=== PATIENT | female | born 1990 | race Hispanic/Latino ===

== ENCOUNTER 2019-07-10 01:06 | Emergency (ER) | payer OTHER, SELFPAY ==
[2019-07-10 01:17] VITALS: BP 117/88; PULSE 92; RESP 18; TEMP 37.1; O2SAT 99
--- NOTE | 2019-07-10 01:22 | ED.PREGNANCY ---
HPI - General Chief complaint: OB/Uterine Contractions Stated complaint: 16 weeks - vaginal bleeding Time Seen by Provider: 07/10/19 01:16 Source: patient and RN notes reviewed Mode of arrival: ambulatory Limitations: no limitations History of Present Illness HPI Narrative: The pt does not speak German so the Stratus was used to translate. A 29 y/o female, who is 16 weeks gravid, presents to the ED with severe, intermittent, contraction like ABD pain beginning at 9 PM tonight. She states that she went to the restroom at 5 PM and when she wiped she had some mucus and a small amount of blood on the toilet paper. She reports that she then began to have severe, intermittent, cramping ABD pains that felt like contractions. She notes that her ABD will get hard whenever she begins to have the pain. She also notes that she [facility] for her OBGYN care. She denies any N/V/D, fevers, chills, cough, or SOB. Complaint: abdominal pain and contractions Onset (ago): hour(s) (4) Pain Consistency: intermittent Location: abdomen Severity: severe Quality: Cramping Associated symptoms: vaginal bleeding (small amount when she wiped) and vaginal discharge (mucus when she wiped) Patient : Yes Number of Weeks : 16 Related Data Home Medications Medication Instructions Recorded Confirmed No Home Medications 05/01/19 05/01/19 Allergies Allergy/AdvReac Type Severity Reaction Status Date / Time No Known Allergies Allergy Verified 07/10/19 01:26 Review of Systems Review of Systems: All systems reviewed & are unremarkable except as noted in HPI and below Constitutional: Constitutional: Denies chills and Denies fever(s) Respiratory: Respiratory: Denies cough and Denies dyspnea Gastrointestinal: Gastrointestinal: Reports abdominal pain, Reports GI cramping (contraction like), Denies diarrhea, Denies nausea and Denies vomiting Genitourinary: Genitourinary: Reports abnormal vaginal bleeding (small amount when she wiped) and Reports vaginal discharge (mucus when she wiped) PMFSH Past Medical History Medical History (Updated 07/10/19 @ 01:37 by Tavo Meek MD) No pertinent past medical history Surgical History Surgical History (Updated 05/01/19 @ 07:33 by Emma Winslow MD) No significant past surgical history Social History Social History (Updated 05/01/19 @ 07:33 by Emma Winslow MD) Smoking status: Never smoker Exam Const: General: healthy appearing and no acute distress Nutritional Appearance: well nourished HENMT: Mouth: Yes lip normal and Yes moist mucous membranes Eyes: Conjunctivae: conjunctivae normal Pupils: Equal, round and reactive pupils present Resp: Effort & Inspection: normal respiratory effort Auscultation: clear to auscultation bilaterally Cardio: Rate: regular rate Rhythm: regular rhythm Heart sounds: no murmurs GI: GI Palp: Yes abdominal tenderness (suprapubic) and Yes Soft to palpation Auscultation: normal bowel sounds Back/Spine/Pelvis: Other: Full ROM. Skin: General skin exam: normal color, dry skin and other (warm) Neuro: General: patient oriented x3 (alert) Speech: normal speech Extrem: General: full ROM Psych: Mental Status: mental status grossly normal Affect: normal affect Course Vital Signs Vital signs: Vital Signs Temperature 37.1 C 07/10/19 01:17 Pulse Rate 92 07/10/19 01:17 Respiratory Rate 18 07/10/19 01:17 Blood Pressure 117/88 07/10/19 01:17 Pulse Oximetry 99 07/10/19 01:17 Temperature 37.1 C 07/10/19 01:17 Pulse Rate 92 07/10/19 01:17 Respiratory Rate 18 07/10/19 01:17 Blood Pressure 117/88 07/10/19 01:17 Pulse Oximetry 99 07/10/19 01:17 Procedures Other Procedure Procedure 1: Other Procedure: Bedside ultrasound shows fetus grossly normal for dates. Reassuring movemeent FHR 157 MDM - OB/Uterine Contractio
== END 2019-07-10 01:46 | disposition home or self-care (01) ==
PROVIDERS: Emergency Provider Emergency Medicine; PCP Registered Nurse
DX: O20.0 Threatened abortion (principal); Z3A.16 16 weeks gestation of pregnancy
CPT/HCPCS: 99282

== ENCOUNTER 2019-07-22 07:48 | Emergency (ER) | payer OTHER, SELFPAY ==
--- NOTE | ~2019-07-22 | XR_ITS ---
EXAMINATION: XR chest 1V portable EXAM DATE: 07/22/2019 10:20 INDICATION: Cough and fever. TECHNIQUE: Portable AP frontal chest x-ray was obtained. There is no prior study for comparison. FINDINGS: There is some ill-defined left lower lobe airspace disease suspected, could be developing f rom acute infectious process, clinical correlation. The lungs are otherwise clear. There are no pleu ral effusions. The cardiomediastinal silhouette is within normal limits. There is no pneumothorax s uspected. The bones and soft tissues are unremarkable. IMPRESSION: Probable developing left lower lobe ill-defined acute airspace disease, clinical correlat ion. Reviewed, dictated and finalized at location B. IMPRESSION: Probable developing left lower lobe ill-defined acute airspace dise ase, clinical correlation.
[2019-07-22 08:00] VITALS: BP 127/79; PULSE 104; RESP 16; TEMP 37.3; O2SAT 100
[2019-07-22 08:45] VITALS: BP 105/62; PULSE 88; RESP 18; O2SAT 100
--- NOTE | 2019-07-22 08:52 | ED.GENADULT ---
HPI - General Adult General Chief complaint: Upper Respiratory Infection Stated complaint: cough, fever Time Seen by Provider: 07/22/19 07:55 Source: patient Mode of arrival: ambulatory Limitations: no limitations History of Present Illness HPI narrative: Patient is a 29-year-old female who presents for evaluation of fever and cough. Patient reports that she has had a one-week history of intermittent fever to 102 Fahrenheit, as well as cough. She denies any shortness of breath. She reports congestion and sore throat. No belly pain or pain with urination. No contraction-like pain, loss of fluids or vaginal bleeding. Patient is currently a G5, P4 currently 20 weeks , following at the [facility]. Patient has not had any complications with this current . Her has been sick with similar symptoms. Her other children are well. No recent travel. Related Data Home Medications Medication Instructions Recorded Confirmed metoclopramide HCl 07/22/19 vit no.[id number] tablet 07/22/19 [Classic ] Allergies Allergy/AdvReac Type Severity Reaction Status Date / Time No Known Allergies Allergy Verified 07/22/19 08:10 Review of Systems Review of Systems: Narrative: CONSTITUTIONAL: Reports fever and chills EYES: Denies visual changes, redness, or discharge. ENT: Reports rhinorrhea, congestion and sore throat CARDIOVASCULAR: Denies chest pain, palpitations, or edema. RESPIRATORY: Reports cough, denies shortness of breath GASTROINTESTINAL: Denies abdominal pain, nausea, vomiting, or diarrhea. GENITOURINARY: Denies dysuria or hematuria. SKIN: Denies rash or itching. MUSCULOSKELETAL: Denies back pain, joint pain, or myalgia. NEUROLOGIC: Denies headache, numbness, or weakness. PSYCHIATRIC: Denies anxiety or depression. [facility] Past Medical History Medical History (Updated 07/22/19 @ 12:22 by Oliva Hollis MD) No pertinent past medical history and not yet delivered Surgical History Surgical History No significant past surgical history Social History Social History Smoking status: Never smoker Exam Narrative: Exam Narrative: GENERAL: Awake, alert, conversant HEAD: Normocephalic, atraumatic. EYES: PERRLA and EOMI. ENT: Nares clear, no rhinorrhea or epistaxis. Mucous membranes moist. Oropharynx with mild erythema, no exudate. No trismus. NECK: Supple. CHEST: Rhonchi present. No respiratory distress, breathing even and non labored HEART: Regular rate, sinus rhythm ABDOMEN:Non distended, non tender, fundus palpable at the umbilicus, no rigidity or guarding EXTREMITIES: Normal range of motion. No edema. SKIN: Warm, dry, no rash. NEURO:No focal deficits. Alert and oriented x3 Course Course Emergency Course: Patient presented for evaluation of cough, fever. At the time of initial assessment, ABCs are intact, vital signs are stable. Physical exam is notable for no erythema of the oropharynx. No labored respirations. IV access obtained and labs are drawn. Chest x-ray shows a developing pneumonia. Patient's spouse has findings that are very suspicious for Royal 19 pneumonia. Patient otherwise has no respiratory distress. Mild symptoms. heart tones in the 140s. No contraction-like pain, vaginal bleeding, loss of fluids. Patient influenza and was negative. No UTI. Advised patient the importance of staying at home, quarantine at home, limiting contact. Spoke with the patient's CLERICAL INVESTIGATOR, we will do azithromycin, fever management and a close phone follow-up for her. Patient was then discharged home with very strict return precautions. Vital Signs Vital signs: Vital Signs Temperature 37.3 C 07/22/19 08:00 Pulse Rate 104 H 07/22/19 08:00 Respiratory Rate 16 07/22/19 08:00 Blood Pressure 127/79 07/22/19 08:00 Pulse Oximetry
[2019-07-22 09:15] VITALS: BP 100/59; PULSE 74; RESP 20; O2SAT 99
[2019-07-22 09:52] LABS: Basophils Percent Auto 0.3 % (0.2-1.2); Eosinophils Percent Auto 0.6 % (0-4.4); Hematocrit 37.6 % (37.0-47.0); Hemoglobin 12.3 g/dL (12.0-15.0); Immature Granulocyte Absolute 0.02 K/mm3 (0.00-0.031); Immature Granulocyte Percent A 0.3 % (0-0.5); Lymphocytes Absolute Auto 1.36 K/mm3 (0.9-3.2); Lymphocytes Percent Auto 20.2 % (18.3-44.2); Mean Corpuscular HGB Conc 32.7 g/dl (32-36); Mean Corpuscular Hemoglobin 28.5 pg (26-34); Mean Corpuscular Volume 87.2 fl (80-100); Mean Platelet Volume 11.2 fl (7.4-10.4); Monocytes Absolute Auto 0.4 K/mm3 (0.1-0.6); Monocytes Percent Auto 5.4 % (2.6-8.5); Neutrophils Absolute Auto 4.9 K/mm3 (1.3-6.7); Neutrophils Percent Auto 73.2 % (45.5-73.1); Platelet Count Result 194 k/mm3 (150-375); Red Blood Count 4.31 M/mm3 (4.2-5.4); Red Cell Distribution Width 12.8 % (11.5-14.5); White Blood Count 6.7 K/mm3 (4.5-10.0)
[2019-07-22 10:00] VITALS: BP 103/58; PULSE 81; RESP 18; O2SAT 100
--- NOTE | 2019-07-22 10:05 | PC.NURSE ---
COVID 19 TEST OBTAINED AND SENT TO LAB. PT TOLERATED WELL.
[2019-07-22 10:32] LABS: CRP 3.4 mg/dL (<1.0)
[2019-07-22 10:43] LABS: Alanine Aminotransferase 14 U/L (4-35); Albumin Level 3.6 g/dL (3.5-5.1); Alkaline Phosphatase 57 U/L (38-126); Aspartate Amino Transferase 26 U/L (14-36); Bilirubin,Total 0.2 mg/dL (0.2-1.3); Blood Urea Nitrogen 3 mg/dL (7-17); Calcium 8.6 mg/dL (8.4-10.2); Carbon Dioxide 23 mmol/L (22-30); Chloride 106 mmol/L (98-107); Estimated CRCL calculation 161 ml/min; Estimated Glomerular Filt Rate > 60; Glucose 77 mg/dL (65-105); Potassium 3.7 mmol/L (3.4-5.0); Sodium 136 mmol/L (137-145)
[2019-07-22 11:01] LABS: Lactate Dehydrogenase 384 U/L (313-618)
[2019-07-22 11:39] LABS: Add Urine Microscopic? YES; Appearance Urine Clear (Clear); Bacteria Urine Trace /hpf; Bilirubin Urine Negative (Negative); Blood Urine Negative (Negative); Color Urine Straw (Yellow); Glucose Urine UA Negative (Negative); Ketones Urine 1+ mg/dL (Negative); Leukocyte Esterase Ur Negative LEU/UL (Negative); Mucus Urine Rare /lpf; Nitrate Urine Negative (Negative); Protein Urine Negative (Negative); RBC Urine 0-2 /hpf (0-2); Squamous Epithelial Cell Urine Many /hpf (Few); Urobilinogen Urine Negative mg/dL (<2.0); WBC Urine 0-3 /hpf
[2019-07-22 12:55] VITALS: BP 118/64; PULSE 88; RESP 16; O2SAT 98
== END 2019-07-22 13:26 | disposition home or self-care (01) ==
PROVIDERS: Emergency Provider Emergency Medicine; PCP Registered Nurse
DX: O98.512 Other viral diseases complicating pregnancy, second trimester (principal); U07.1 COVID-19; O99.512 Diseases of the respiratory system complicating pregnancy, second trimester; J12.89 Other viral pneumonia; Z3A.20 20 weeks gestation of pregnancy
CPT/HCPCS: 36415; 71045; 80053; 81001; 83615; 85025; 86140; 87081; 87804; 87880; 99283

== ENCOUNTER 2022-02-07 19:30 | Emergency (ER) | payer OTHER, SELFPAY ==
[2022-02-07 20:13] VITALS: BP 127/77; PULSE 113; RESP 16; TEMP 39.4; O2SAT 98
--- NOTE | 2022-02-07 20:23 | ED.URI ---
HPI - URI/Sore Throat General Chief Complaint: Fever Stated Complaint: fever Time Seen by Provider: 02/07/22 20:24 Source: patient and RN notes reviewed Mode of arrival: ambulatory Limitations: no limitations History of Present Illness HPI Narrative: 31-year-old female presents to the [facility] with complaints of fever, body aches, sore throat for 2 days. Has taken Tylenol this morning. No other treatment prior to arrival. MD elicited complaint: fever, sore throat and nasal congestion Onset (ago): day(s) (2) Related Data Allergies Allergy/AdvReac Type Severity Reaction Status Date / Time No Known Allergies Allergy Verified 07/22/19 08:10 Review of Systems Review of Systems: All systems reviewed & are unremarkable except as noted in HPI and below Constitutional: Constitutional: Reports no additional constitutional complaints, Denies chills and Denies fever(s) Eyes: Eyes: Reports no additional eye complaints ENT: Reports system reviewed and no additional complaints, except as documented Cardiovascular: Cardiovascular: Reports no additional cardiovascular complaints Respiratory: Respiratory: Reports no additional respiratory complaints Gastrointestinal: Gastrointestinal: Reports no additional gastrointestinal complaints Musculoskeletal: Musculoskeletal: Reports no additional musculoskeletal complaints Integumentary/Breasts: Skin/Breast: Reports system reviewed and no additional complaints, except as docu Neurologic: Reports system reviewed and no additional complaints, except as documented Psychiatric: Psychiatric: Reports no additional psychiatric complaints Allergic/Immunologic: Allergic/Immunologic: Reports no additional allergic/immunologic complaints PMFSH Past Medical History Medical History No pertinent past medical history and not yet delivered Surgical History Surgical History No significant past surgical history Social History Social History Smoking status: Never smoker Comments At the time of my signature, I reviewed and agree with the nursing past medical, surgical, social, and family history. There is no relevant family history pertinent to the patient complaint. Exam Const: General: no acute distress, alert, ill appearing acutely and well nourished Nutritional Appearance: well nourished Orientation/consciousness: patient oriented x3 Limitations: no limitations HENMT: Head: normal to inspection Ears: external ears normal, TM's normal bilaterally and EAC's normal Face/Nose/Sinus: Normal external nose present, Normal nares present and Normal nasal mucous membranes and turbinates present Face and sinus: normal facial exam and face symmetric Mouth: Yes Normal oral and palatal mucosa present, Yes lip normal, Yes tongue normal and Yes moist mucous membranes Throat: uvula midline, abnormal tonsil bilateral erythema and hypertrophy 2+, posterior oropharynx abnormal erythema; no exudates and no lacerations and postnasal drainage Eyes: General: appearance normal, both eyes and all related structures Conjunctivae: conjunctivae normal Pupils: Equal, round and reactive pupils present Neck: Neck: normal visual inspection, no lymphadenopathy and no meningeal signs Chest: Chest palpation & inspection: normal inspection of the chest Resp: Effort & Inspection: normal respiratory effort and no use of accessory muscles Auscultation: clear to auscultation bilaterally, no crackles, no rales, no rhonchi and no wheezes Cardio: Rate: regular rate Rhythm: regular rhythm Skin: General skin exam: normal color Rashes: no rashes Wounds: no wounds Neuro: General: patient oriented x3, moves all extremities, no meningeal signs and no focal motor deficits Cranial nerves: Yes Equal, round and reactive pupils present Speech: normal speech
== END 2022-02-07 20:43 | disposition home or self-care (01) ==
PROVIDERS: Emergency Provider Nurse Practitioner; PCP Physician Assistant
DX: J02.0 Streptococcal pharyngitis (principal)
CPT/HCPCS: 87804; 87880; 99213; G0463

== ENCOUNTER 2023-04-08 15:53 | Emergency (ER) | payer OTHER, SELFPAY ==
[2023-04-08 16:10] VITALS: BP 125/74; PULSE 92; RESP 14; TEMP 37; O2SAT 100
--- NOTE | 2023-04-08 17:00 | ED.URI ---
HPI - URI/Sore Throat General Chief Complaint: Upper Respiratory Infection Stated Complaint: fever,sore throat Time Seen by Provider: 04/08/23 17:00 Source: patient Mode of arrival: ambulatory Limitations: no limitations History of Present Illness HPI Narrative: 33-year-old female presents with complaint of sore throat, headache, fatigue, fever starting yesterday. Patient taking Tylenol to treat symptoms. Denies nausea vomiting diarrhea. All systems reviewed and negative except as noted above. Related Data Allergies Allergy/AdvReac Type Severity Reaction Status Date / Time No Known Allergies Allergy Verified 04/08/23 16:11 Review of Systems Review of Systems: CONSTITUTIONAL: reports fever, chills, or sweats. EYES: Denies visual changes, redness, or discharge. ENT: Denies rhinorrhea, congestion . Reports sore throat. Denies otalgia. CARDIOVASCULAR: Denies chest pain, palpitations, or edema. RESPIRATORY: Denies cough or dyspnea. GASTROINTESTINAL: Denies abdominal pain, nausea, vomiting, or diarrhea. GENITOURINARY: Denies dysuria or hematuria. SKIN: Denies rash or itching. MUSCULOSKELETAL: Denies back pain, joint pain, or myalgia. NEUROLOGIC: reports headache. Denies numbness, or weakness. PSYCHIATRIC: Denies anxiety or depression. All other systems reviewed are negative, except as documented in HPI. PMFSH Past Medical History Medical History No pertinent past medical history and not yet delivered Surgical History Surgical History No significant past surgical history Social History Social History Smoking status: Never smoker Comments At time of signature, agree with nursing past medical, surgical, social and family history. There is no relevant family history pertinent to the presenting complaint. Exam Narrative: GENERAL: This is a well-nourished, well-developed patient, patient ill-appearing but in no acute distress. HEAD: normocephalic, atraumatic. EYES: PERRL. Sclera clear/white. Vision is grossly intact. EARS: External ears normal, auditory canals clear and without drainage, TMs normal without perforation. Hearing grossly intact. NOSE: External nose normal with no obvious nasal discharge, nares without redness, no rhinorrhea. THROAT: Mucous membranes moist, Posterior pharynx erythematous with swelling. No exudates. NECK: Neck supple, tender with Anterior cervical lymphadenopathy. No masses or thyromegaly. CARDIOVASCULAR: Regular rate and rhythm without murmurs, gallops, or rubs. RESPIRATORY: Clear to auscultation. Breath sounds equal bilaterally. No wheezes, rales, or rhonchi. SKIN: warm, Dry, intact with no suspicious lesions or rash, good texture and turgor. NEURO: awake, alert, and oriented to person, place and time. There were no obvious focal neurologic abnormalities. EXTREMITIES: No joint tenderness, effusion, or edema noted. Course Course Level of Care: Express Care Visit Vital Signs Vital signs: reviewed MDM - URI/Sore Throat MDM Narrative Medical decision making narrative: Patient is aware of diagnosis, understands and agrees to treatment plan. Anticipatory guidance given. Patient agrees to follow-up as directed and is aware of reasons to seek care at the emergency department. Portions of this record may have been created with voice recognition software Differential Diagnosis Differential diagnosis: Likely pharyngitis Lab Data Labs: Strep Screen Positive Group A Strep *(Reference Range: Negative)* Discharge Plan Discharge Clinical Impression: Strep throat Patient Disposition: Home, Self-Care Condition: Stable Instructions: Strep Throat (ED) Additional Instructions: your strep test was positive today. Take
== END 2023-04-08 17:10 | disposition home or self-care (01) ==
PROVIDERS: Emergency Provider Nurse Practitioner Family; PCP Physician Assistant
DX: J02.0 Streptococcal pharyngitis (principal)
CPT/HCPCS: 87880; 99213; G0463

== ENCOUNTER 2023-05-28 08:53 | Outpatient (CLI) | payer OTHER, SELFPAY ==
--- NOTE | 2023-05-28 11:15 | NEURO_ITS ---
Impression: # Non-diabetic complains of nocturnal left hand paresthesia. # Left mild Carpal Tunnel Syndrome. # Normal needle/EMG exam. # Clinical correlation recommended. Nerve Conduction Studies Anti Sensory Summary Table Stim Site NR Peak (ms) P-T Amp (?V) Site1 Site2 Delta-P (ms) Dist (cm) Pineda (m/s) Left Median Anti Sensory (2-3nd Digit) Wrist 3.3 60.4 Wrist 2-3nd Digit 3.3 14.0 42 Wrist 3.3 70.5 Wrist 2-3nd Digit 3.3 14.0 42 Right Median Anti Sensory (2-3nd Digit) Wrist 2.8 57.5 Wrist 2-3nd Digit 2.8 14.0 50 Wrist 2.8 88.2 Wrist 2-3nd Digit 2.8 14.0 50 Left Radial Anti Sensory (Base 1st Digit) Wrist 1.8 36.0 Wrist Base 1st Digit 1.8 0.0 Right Radial Anti Sensory (Base 1st Digit) Wrist 2.1 14.7 Wrist Base 1st Digit 2.1 0.0 Left Ulnar Anti Sensory (5th Digit) Wrist 2.5 89.5 Wrist 5th Digit 2.5 14.0 56 Right Ulnar Anti Sensory (5th Digit) Wrist 2.1 43.0 Wrist 5th Digit 2.1 14.0 67 Motor Summary Table Stim Site NR Onset (ms) O-P Amp (mV) Site1 Site2 Delta-0 (ms) Dist (cm) Pineda (m/s) Left Median Motor (Abd Poll Brev) Wrist 4.5 2.3 Elbow Wrist 4.3 26.0 60 Elbow 8.8 3.2 Right Median Motor (Abd Poll Brev) Wrist 3.2 9.0 Elbow Wrist 4.2 25.0 60 Elbow 7.4 8.5 Left Ulnar Motor (Abd Dig Minimi) Wrist 2.5 8.7 A Elbow Wrist 4.8 28.0 58 A Elbow 7.3 7.3 Right Ulnar Motor (Abd Dig Minimi) Wrist 2.6 7.8 A Elbow Wrist 4.4 27.0 61 A Elbow 7.0 6.5 F Wave Studies NR F-Lat (ms) L-R F-Lat (ms) Left Median (Mrkrs) (Abd Poll Brev) 25.11 1.13 Right Median (Mrkrs) (Abd Poll Brev) 23.98 1.13 Left Ulnar (Mrkrs) (Abd Dig Min) 24.81 1.38 Right Ulnar (Mrkrs) (Abd Dig Min) 23.44 1.38 EMG Side Muscle Nerve Root Ins Act Fibs Amp Dur Recrt Comment Right 1stDorInt Ulnar C8-T1 Nml Nml Nml Nml Nml Right Ext Indicis Radial (Post Int) C7-8 Nml Nml Nml Nml Nml Right Ext Digitorum Radial (Post Int) C7-8 Nml Nml Nml Nml Nml Right BrachioRad Radial C5-6 Nml Nml Nml Nml Nml Right PronatorTeres Median C6-7 Nml Nml Nml Nml Nml Right Abd Poll Brev Median C8-T1 Nml Nml Nml Nml Nml Left 1stDorInt Ulnar C8-T1 Nml Nml Nml Nml Nml Left Ext Indicis Radial (Post Int) C7-8 Nml Nml Nml Nml Nml Left Ext Digitorum Radial (Post Int) C7-8 Nml Nml Nml Nml Nml Left BrachioRad Radial C5-6 Nml Nml Nml Nml Nml Left PronatorTeres Median C6-7 Nml Nml Nml Nml Nml Left Abd Poll Brev Median C8-T1 Nml Nml Nml Nml Nml Right ABD Dig Min Ulnar C8-T1 Nml Nml Nml Nml Nml Right Biceps Musculocut C5-6 Nml Nml Nml Nml Nml Right Triceps Radial C6-7-8 Nml Nml Nml Nml Nml Right Deltoid Axillary C5-6 Nml Nml Nml Nml Nml Left ABD Dig Min Ulnar C8-T1 Nml Nml Nml Nml Nml Left Biceps Musculocut C5-6 Nml Nml Nml Nml Nml Left Triceps Radial C6-7-8 Nml Nml Nml Nml Nml Left Deltoid Axillary C5-6 Nml Nml Nml Nml Nml MTDD
== END 2023-05-28 08:54 | disposition home or self-care (01) ==
LOC: ANHNEURO 08:54
PROVIDERS: PCP Physician Assistant; Visit Provider Physician Assistant
DX: G56.02 Carpal tunnel syndrome, left upper limb (principal)
CPT/HCPCS: 95886; 95911

== ENCOUNTER 2023-08-03 08:32 | Emergency (ER) | payer OTHER, SELFPAY ==
--- NOTE | ~2023-08-03 | CT_ITS ---
EXAMINATION: CT soft tissue neck w con DATE: 08/03/2023 10:56 INDICATION: Postop pain. Tonsillectomy. TECHNIQUE: Computed tomography (CT) of the neck was performed with 75 mL Omnipaque-350 intravenous co ntrast. The dose-length product was 404.82 mGy-cm. Automated exposure control and iterative reconstru ction technique were employed. COMPARISON: None FINDINGS: No intracranial abnormality. No significant abnormality of the mucosal or parapharyngeal sp aces. Lung apices are unremarkable. No significant narrowing of the naso or oropharynx. No evidence f or abscess. No significant lymphadenopathy. No significant vascular abnormality. Thyroid gland is unr emarkable. Mucosal and parapharyngeal spaces are symmetric. IMPRESSION: 1. No significant abnormality of the neck soft tissues. Reviewed, dictated and finalized at location A.
[2023-08-03 08:37] VITALS: BP 123/83; PULSE 97; RESP 18; TEMP 37; O2SAT 100
[2023-08-03 10:05] LABS: Basophils Percent Auto 0.4 % (0.2-1.2); Eosinophils Absolute Auto 0.3 K/mm3 (0-0.3); Eosinophils Percent Auto 3.2 % (0-4.4); Hematocrit 46.9 % (37.0-47.0); Hemoglobin 15.2 g/dL (12.0-15.0); Immature Granulocyte Absolute 0.04 K/mm3 (0.00-0.031); Immature Granulocyte Percent A 0.4 % (0-0.5); Lymphocytes Absolute Auto 2.05 K/mm3 (0.9-3.2); Lymphocytes Percent Auto 19.2 % (18.3-44.2); Mean Corpuscular HGB Conc 32.4 g/dl (32-36); Mean Corpuscular Volume 89.3 fl (80-100); Mean Platelet Volume 10.5 fl (7.4-10.4); Monocytes Absolute Auto 0.4 K/mm3 (0.1-0.6); Monocytes Percent Auto 3.8 % (2.6-8.5); Neutrophils Absolute Auto 7.8 K/mm3 (1.3-6.7); Platelet Count Result 307 k/mm3 (150-375); Red Blood Count 5.25 M/mm3 (4.2-5.4); Red Cell Distribution Width 12.7 % (11.5-14.5); White Blood Count 10.7 K/mm3 (4.5-10.0)
[2023-08-03] MEDS: dexAMETHasone SOD PHOS INJ 10 MG/ML 1 ML VIAL IV PUSH (10:14)
[2023-08-03] MEDS: ONDANSETRON INJ 4 MG/2 ML VIAL IV PUSH (10:14)
[2023-08-03 10:15] LABS: Alanine Aminotransferase 26 U/L (6-35); Albumin Level 4.8 g/dL (3.5-5.1); Alkaline Phosphatase 80 U/L (38-126); Anion Gap 9 mmol/L (4-12); Aspartate Amino Transferase 28 U/L (14-36); Bilirubin,Total 0.7 mg/dL (0.2-1.3); Blood Urea Nitrogen 7 mg/dL (7-17); Calcium 9.8 mg/dL (8.4-10.2); Carbon Dioxide 27 mmol/L (22-30); Chloride 104 mmol/L (98-107); Estimated Glomerular Filt Rate > 60; Glucose 98 mg/dL (65-110); Sodium 140 mmol/L (137-145)
[2023-08-03] MEDS: FAMOTIDINE 20 MG/2 ML VIAL IV PUSH (10:15)
[2023-08-03] MEDS: KETOROLAC 30 MG/ML VIAL (*BKC) IV PUSH (10:15)
[2023-08-03] MEDS: SODIUM CHLORIDE 0.9% IV 1,000 ML 999 ML IV CONT (10:15)
--- NOTE | 2023-08-03 10:37 | ED.GENADULT ---
HPI - General Adult General Chief complaint: Upper Respiratory Infection Stated complaint: fever Time Seen by Provider: 08/03/23 08:57 History of Present Illness HPI narrative: Opal Perry is a 33 y/o Luxembourgish speaking female, through the district home economics agent pt states that she had her tonsils removed Friday 5 days ago and she states that after the surgery Friday she had nausea/vomiting/ she thought she was feeling better but Friday she started having nausea/vomiting and the pain has been getting worse since Friday to her throat. She has been taking Ibuprofen and her liquid [place] for pain. Denies any fever/chills. Related Data Allergies Allergy/AdvReac Type Severity Reaction Status Date / Time No Known Allergies Allergy Verified 04/08/23 16:11 Review of Systems Review of Systems: All systems reviewed & are unremarkable except as noted in HPI and below PMFSH Past Medical History Medical History No pertinent past medical history and not yet delivered Surgical History Surgical History No significant past surgical history Social History Social History Smoking status: Never smoker Exam Narrative: GENERAL: Well-appearing, well-nourished, and in no acute distress. HEAD: Normocephalic, atraumatic. EYES: PERRLA and EOMI. ENT: Nares clear, no rhinorrhea or epistaxis. Mucous membranes moist. Oropharynx without exudate or other lesions airway without any notable edema or drainage NECK: Supple. No adenopathy or masses. No carotid bruits or JVD CHEST: Clear to auscultation. No respiratory distress. No wheezes rales or rhonchi HEART: Regular rate and rhythm. No murmur heard. Normal peripheral pulses. ABDOMEN: Soft, nontender, nondistended, normal active bowel sounds. EXTREMITIES: Normal range of motion. No edema. SKIN: Warm, dry, no rash. NEURO: No focal deficits. Alert and oriented x3. PSYCH: Normal mood and affect. Course Vital Signs Vital signs: Vital Signs Temperature 37.0 C 08/03/23 08:37 Pulse Rate 97 08/03/23 08:37 Respiratory Rate 18 04/21/24 08:37 Blood Pressure 123/83 08/03/23 08:37 Pulse Oximetry 100 08/03/23 08:37 Oxygen Delivery Room Air 08/03/23 08:37 Temperature 37.0 C 08/03/23 08:37 Pulse Rate 79 08/03/23 12:23 Respiratory Rate 17 08/03/23 12:23 Blood Pressure 127/87 08/03/23 12:23 Pulse Oximetry 99 08/03/23 12:23 Oxygen Delivery Room Air 08/03/23 08:37 Medical Decision Making MDM Narrative Medical decision making narrative: 33 y/o female presents today with complaints of post op pain s/p tonsillectomy 5 days ago. SHe states that her pain since friday has felt worse. She is no longer having nausea/vomiting / tolerating liquids On exam pt appears well but having pain to her throat Speaking in clear full sentences - lung sounds clear/ afebrile Oral pharynx without edema/ drainage/ bleeding / airway patent No obvious lymphadenopathy Will check basic labs/ CT neck soft tissue to be sure CBC - mild leukocytosis 10.7/ hemodynamically stable CMP - unremarkable UA- + leuks - rbcs wbc 6-10- discussed this with pt and she is not having any urinary symptoms and this is likely asymptomatic bacteruria and will hold off starting antibiotics Discussed with pt the plan to be d/c home wtih continued [place] that she has and Naproxen BID Close follow up with her ENT is scheduled in a week Encouraged her to keep pushing oral intake -/ hydration Will also send her wtih Ondansetron PRN for nausea Strict return precautions provided. This was all discussed through the district home economics agent and all questions were answered, pt agreed with this plan and also asked for additional days off of work and will also give her that as well. Medical Records Medical records reviewed: Yes I reviewed
[2023-08-03 11:16] LABS: Appearance Urine Cloudy (Clear); Bacteria Urine None Seen /hpf; Bilirubin Urine Negative (Negative); Blood Urine Negative (Negative); Color Urine Yellow (Yellow); Glucose Urine UA Negative (Negative); Ketones Urine Negative (Negative); Leukocyte Esterase Ur 2+ LEU/UL (Negative); Need Manual Microscopic Reviewed; Nitrate Urine Negative (Negative); Non Pathogenic Casts 0-2; Protein Urine Negative (Negative); RBC Urine 21-50 /hpf (0-2); Specific Grav Ur 1.008 (1.001-1.035); Squamous Epithelial Cell Urine Few /hpf (Few); Urobilinogen Urine 0.2 mg/dL (<2.0)
[2023-08-03 11:50] LABS: Add Urine Microscopic? YES
[2023-08-03 12:23] VITALS: BP 127/87; PULSE 79; RESP 17; O2SAT 99
[2023-08-03 13:02] LABS: Pregnancy On Board Control Positive; Urine Pregnancy Test Negative
[2023-08-03] MEDS: HYDROcodone/acetaminophen (*CRX) 7.5-325 MG TABLET 1 TAB PO (14:22)
[2023-08-03 14:54] VITALS: BP 124/80; PULSE 80; RESP 16; TEMP 36.6; O2SAT 98
== END 2023-08-03 14:56 | disposition home or self-care (01) ==
PROVIDERS: Emergency Provider Nurse Practitioner Family; PCP Physician Assistant
DX: G89.18 Other acute postprocedural pain (principal); R07.0 Pain in throat
CPT/HCPCS: 36415; 70491; 80053; 81001; 81025; 85025; 87086; 96361; 96374; 96375; 99284; A9270; J1100; J1885; J2405; J7030; Q9967